=== PATIENT | female | born 1995 | race Caucasian/White ===

== ENCOUNTER 2019-02-11 22:45 | Emergency (ER) | payer SELFPAY ==
[2019-02-11 23:36] LABS: EOS # 0.2 (0.04-0.40); EOS % 2.8 % (1.0-5.0); HEMATOCRIT 40.3 % (37.0-47.0); LYMPH# 3.3 (1.50-4.00); MEAN CELL VOLUME 93 fl (78-100); MEAN CORPUSCULAR HEMOGLOBIN 30 pg (27-31); MEAN CORPUSCULAR HGB CONC 32 g/dL (33-37); MEAN PLATELET VOLUME 9.8 fl (7.4-10.4); MONO # 0.4 (0.20-0.80); NEU # 4.3 (1.40-6.50); PLATELET COUNT 271 K/mm3 (130-400); RED BLOOD COUNT 4.35 M/mm3 (4.10-5.30); RED CELL DISTRIBUTION WIDTH 12.7 % (11.5-14.5); WHITE BLOOD COUNT 8.2 K/mm3 (4.8-10.8)
[2019-02-11 23:40] LABS: ALBUMIN 4.4 g/dL (3.5-5.0); POTASSIUM 4.3 mmol/L (3.5-5.1)
[2019-02-11 23:42] LABS: CALCIUM 9.3 mg/dL (8.3-10.5)
[2019-02-11 23:43] LABS: TOTAL PROTEIN 6.2 g/dL (6.4-8.3)
[2019-02-11 23:45] LABS: TOTAL BILIRUBIN 0.2 mg/dL (0.2-1.2)
[2019-02-11 23:52] LABS: URINE APPEARANCE HAZY; URINE COLOR YELLOW
[2019-02-11 23:53] LABS: URINE BILIRUBIN NEGATIVE (NEGATIVE); URINE BLOOD NEGATIVE (NEGATIVE); URINE GLUCOSE NEGATIVE (NEGATIVE); URINE KETONE NEGATIVE (NEGATIVE); URINE LEUKOCYTE ESTERASE 2+ (NEGATIVE); URINE MUCUS PRESENT (NOT PRESENT); URINE NITRATE NEGATIVE (NEGATIVE); URINE PROTEIN(semi-quant) NEGATIVE (NEGATIVE); URINE UROBILINOGEN NORMAL (NORMAL)
[2019-02-12] MEDS ORDERED: FLAGYL500 M1 PO (00:16)
[2019-02-12] MEDS ORDERED: BACTRIM DS TAB1 EACH PO (00:16)
[2019-02-12 00:25] VITALS: BP 101/61
== END 2019-02-12 00:25 | disposition home or self-care (01) ==
LOC: ED 22:45
PROVIDERS: Physician Assistant
DX: N76.0 Acute vaginitis (principal); N39.0 Urinary tract infection, site not specified; F17.210 Nicotine dependence, cigarettes, uncomplicated; Z98.51 Tubal ligation status

== ENCOUNTER 2021-12-24 01:58 | Emergency (ER) | payer BC ==
[~2021-12-24] VITALS: Ht 167.6 cm; Wt 78.2 kg
[~2021-12-24 01:58] MED LIST: BACTRIM DS TAB1 EACH PO; FLAGYL500 M1 PO
[2021-12-24] MEDS ORDERED: CYANOCOBAL1000 MCG/1 IM (02:14)
[2021-12-24 04:15] LABS: BASO # 0.01 K/mm3 (0.02-0.10); EOS % 2.8 % (1.0-5.0); HEMATOCRIT 37.6 % (37.0-47.0); HEMOGLOBIN 12.7 g/dL (12.5-16.0); MEAN CELL VOLUME 92 fl (78-100); MEAN CORPUSCULAR HEMOGLOBIN 31 pg (27-31); MEAN CORPUSCULAR HGB CONC 34 g/dL (33-37); MEAN PLATELET VOLUME 9.4 fl (7.4-10.4); MONO # 0.35 K/mm3 (0.20-0.80); PLATELET COUNT 262 K/mm3 (130-400); RED BLOOD COUNT 4.11 M/mm3 (4.10-5.30); RED CELL DISTRIBUTION WIDTH 12.7 % (11.5-14.5); WHITE BLOOD COUNT 7.3 K/mm3 (4.8-10.8)
[2021-12-24 04:19] LABS: ALBUMIN 4.3 g/dL (3.5-5.0); POTASSIUM 3.7 mmol/L (3.5-5.1)
[2021-12-24 04:21] LABS: CALCIUM 9.2 mg/dL (8.3-10.5)
[2021-12-24 04:22] LABS: TOTAL PROTEIN 6.9 g/dL (6.4-8.3)
[2021-12-24 04:24] LABS: TOTAL BILIRUBIN 0.2 mg/dL (0.2-1.2)
[2021-12-24 04:33] LABS: URINE APPEARANCE CLEAR; URINE BILIRUBIN NEGATIVE (NEGATIVE); URINE BLOOD NEGATIVE (NEGATIVE); URINE COLOR LT YELLOW; URINE GLUCOSE NEGATIVE (NEGATIVE); URINE KETONE NEGATIVE (NEGATIVE); URINE LEUKOCYTE ESTERASE NEGATIVE (NEGATIVE); URINE NITRATE NEGATIVE (NEGATIVE); URINE PROTEIN(semi-quant) NEGATIVE (NEGATIVE); URINE UROBILINOGEN NORMAL (NORMAL); URINE WBC 0-1 /hpf (0-3)
[2021-12-24 04:57] VITALS: BP 122/76
== END 2021-12-24 04:57 | disposition home or self-care (01) ==
LOC: ED 01:58
PROVIDERS: Family Medicine
DX: R25.9 Unspecified abnormal involuntary movements (principal); K21.9 Gastro-esophageal reflux disease without esophagitis; F17.200 Nicotine dependence, unspecified, uncomplicated; Z28.310 Unvaccinated for COVID-19

== ENCOUNTER 2022-06-13 13:37 | Outpatient (RCR) | payer MEDICAID ==
[~2022-06-13 13:37] MED LIST changes: +CYANOCOBAL1000 MCG/1 IM
== END 2022-07-04 | disposition home or self-care (01) ==
LOC: PT
DX: M25.511 Pain in right shoulder (principal)

== ENCOUNTER 2023-12-06 17:00 | Outpatient (RCR) | payer MEDICAID | END 2024-01-03 | LOC: PT | DX: M75.121 Complete rotator cuff tear or rupture of right shoulder, not specified as traumatic (principal) ==